=== PATIENT | female | born 1975 | race Caucasian/White ===

== ENCOUNTER 2020-03-30 22:11 | Emergency (ER) | payer BC ==
[~2020-03-30] VITALS: Ht 167.6 cm; Wt 77.1 kg
--- NOTE | ~2020-03-30 | EKG ---
[facility] [address] ELECTROCARDIOGRAM REPORT Name: GEORGIA PINO Room #: [facility]#: [id number] Admission: 03/30/20 Attend Phys: Discharge: 03/31/20 Date of : 79 Report #: [id number] THIS REPORT FOR: cc: Physician not on staff Physician not on staff Digna Sawyer MD ~ THIS REPORT FOR: //name// [facility] ED Test Date: 2020-03-30 Test Time: 22:17:41 Pat Name: GEORGIA PINO Department: Room: Gender: F [employer]: : 1975 Requested By: [place] Order Number: [id number] MD: Measurements Intervals [place] Rate: 81 P: 67 MN: 153 QRS: 71 QRSD: 103 T: 60 QT: 387 QTc: 450 Interpretive Statements Sinus rhythm Abnormal R-wave progression, early transition No previous ECG available for comparison [email or web address] By: 16 16 Digna Sawyer MD /EPI
[2020-03-30 23:23] LABS: LIPASE 80 U/L (73-393); TROPONIN-I <0.06 ng/mL (<0.06)
[2020-03-30] MEDS ORDERED: HYDROCORTISONE30 G9 RECTAL (23:47)
[2020-03-30] MEDS ORDERED: VALIUM2 MG PO (23:47)
[2020-03-31 01:05] VITALS: BP 105/75
== END 2020-03-31 01:05 | disposition home or self-care (01) ==
LOC: ER 22:11
PROVIDERS: Emergency Medicine
DX: H81.10 Benign paroxysmal vertigo, unspecified ear (principal); F41.8 Other specified anxiety disorders; G89.29 Other chronic pain; R07.9 Chest pain, unspecified; K64.4 Residual hemorrhoidal skin tags; H93.11 Tinnitus, right ear; Z88.5 Allergy status to narcotic agent